=== PATIENT | female | born 1990 | race Caucasian/White ===

== ENCOUNTER 2018-10-31 11:36 | Emergency (ER) | payer OTHER ==
[~2018-10-31] VITALS: Ht 167.6 cm; Wt 117.5 kg
[~2018-10-31 11:36] MED LIST: AMOX500C2 PO; IBUP-1542 PO; NAPR-985 PO
[2018-10-31 11:41] VITALS: BP 155/87; PULSE 93; RESP 20; Ht 167.6 cm; Wt 117.5 kg
[2018-10-31] MEDS ORDERED: D-ME473S2 PO (14:05)
[2018-10-31] MEDS ORDERED: CETI10CA PO (14:05)
--- NOTE | 2018-10-31 14:08 | ERD ---
ER Documentation Chief Complaint Chief Complaint Complains of cough, colds and flu-like symptoms x 4 days HPI Patient is a 28-year-old female who presents the ER for concerns of cough, nasal congestion, sore throat and fever times 4 days. Patient states she had a fever 3 days ago however that has not resolved. Patient continues to have a productive cough with occasional yellow-green sputum production. Patient denies any nausea, vomiting, abdominal pain or diarrhea. Patient denies any chest pain or shortness of breath. Patient has no neck pain or neck stiffness. No recent travel. No sick contacts. Patient is requesting a note for work. ROS All systems reviewed and are negative except as per history of present illness. Medications Home Meds Active Scripts Cetirizine Hcl* (Zyrtec*) 10 Mg Capsule, 10 MG PO DAILY, #10 TAB.CHEW Prov:HORTENCIA BLAKE PA-C 10/31/18 Dextromethorphan Hb-Promethazine Hcl* (Promethazine DM* Syrup) 473 Ml Syrup, 5 ML PO Q6 PRN for COUGH, #4 OZ Prov:HORTENCIA BLAKE PA-C 10/31/18 Naproxen* (Naprosyn*) 500 Mg Tablet, 500 MG PO BID PRN for PAIN AND/OR INFLAMMATION, #30 TAB Prov:SUE STEVE PA-C 05/16/16 Ibuprofen* (Motrin*) 600 Mg Tab, 600 MG PO Q6, #14 TAB Prov:YOVANI HARTMAN MD 02/18/16 Amoxicillin* (Amoxicillin*) 500 Mg Cap, 500 MG PO TID for 10 Days, CAP Prov:YOVANI HARTMAN MD 02/18/16 Allergies Allergies: Coded Allergies: No Known Allergy (Verified , 04/12/14) PMhx/Soc History of Surgery: No Anesthesia Reaction: No Hx Neurological Disorder: No Hx Respiratory Disorders: No Hx Cardiac Disorders: No Hx Psychiatric Problems: No Hx Miscellaneous Medical Probl: Yes (gestational hypertension) Hx Alcohol Use: No Hx Substance Use: No Hx Tobacco Use: No Smoking Status: Never smoker FmHx Family History: No diabetes Physical Exam Vitals Vital Signs Date Temp Pulse Resp B/P (MAP) Pulse Ox O2 O2 Flow FiO2 Time Delivery Rate 10/31/18 99.3 93 20 155/87 95 11:41 (109) Physical Exam GENERAL: Well-developed, well-nourished female. Appears in no acute distress. HEAD: Normocephalic, atraumatic. No deformities or ecchymosis. EYE: Pupils equal, round, and reactive to light. EOMs intact. No conjunctival erythema. No eye discharge. ENT: External ear without any masses or tenderness. Auditory canals clear bilaterally. TM visualized bilaterally, non-erythematous, non-bulging. Nasal mucosa pink with no discharge. Oropharynx is pink without any tonsillar erythema or exudates. No uvula deviation. No kissing tonsils. NECK: Supple. No meningismus. Normal ROM of the neck. LUNG: Clear to auscultation bilaterally. No rhonchi, wheezing, rales or coarse breath sounds. HEART: Regular rate and rhythm. No murmurs, rubs or gallops. EXTREMITES: Equal pulses bilaterally. No peripheral clubbing, cyanosis or edema. No unilateral leg swelling. NEUROLOGIC: Alert and oriented to person, place and time. Moving all four extremities. 5/5 strength in all extremities. Normal speech. Steady gait. SKIN: Normal color. Warm and dry. No rashes or lesions. Procedures/MDM MEDICAL DECISION MAKING: This is a 28-year-old female who presents the ER for concerns of intermittent fevers, cough, congestion and sore throat for the last 4 days.. Vital signs were reviewed. Patient was afebrile. Patient was not hypoxic. ENT exam was normal. Lung exam was normal. Given these findings, the patients presentation is most consistent with viral URI. I have a much lower clinical concern for bacterial infections including pneumonia, meningitis, sinusitis, otitis externa, acute otitis media, strep pharyngitis, epiglottitis or peritonsillar abscess. Patient was nontoxic, non-opening prior to discharge. PRESCRIPTIONS: Promethazine DM cough syrup, Zyrtec DISCHARGE: At this time, patient is stable for discharge and outpatient management. Supportive therapies such as OTC throat lozenges, salt water gurgles, popsicles and jello discussed. I have instructed the patient to follow-up with his/her primary care physician in 1-2 days. I have instructed the patient to promptly return to the ER for any new or worsening symptoms including increased pain, swelling, fever, nausea, vomiting, weakness or difficulty breathing. The patient and/or family expressed understanding of and agreement with this plan. All questions were answered. Home care instructions were provided. Disclaimer: Inadvertent spelling and grammatical errors are likely due to EHR/dictation software use and do not reflect on the overall quality of patient care. Also, please note that the electronic time recorded on this note does not necessarily reflect the actual time of the patient encounter. Departure Diagnosis: Primary Impression: Upper respiratory infection URI type: unspecified URI Qualified Codes: J06.9 - Acute upper respiratory infection, unspecified Condition: Stable Patient Instructions: Preventing Common Respiratory Infections Referrals: ABI PARMAR MD (PCP) Additional Instructions: Call your primary care doctor TOMORROW for an appointment during the next 1-2 days.See the doctor sooner or return here if your condition worsens before your appointment time. HORTENCIA BLAKE PA-C Oct 31, 2018 14:08
== END 2018-10-31 14:34 | disposition home or self-care (01) ==
LOC: FTE 11:36
DX: J06.9 Acute upper respiratory infection, unspecified (principal)
CPT/HCPCS: 99282